=== PATIENT | male | born 1960 | race Caucasian/White ===

== ENCOUNTER 2016-07-26 15:08 | Inpatient (IN) | payer OTHER ==
[~2016-07-26] VITALS: Ht 180.3 cm; Wt 82.3 kg
--- NOTE | ~2016-07-26 | PR ---
[place], [place] PROGRESS NOTE NAME: BRIGIDA OLIVEIRA UNIT #: [id number] ROOM: [facility]- DOCTOR: LYNN FARRELL MD BIRTHDATE: [birth year] DOS: 07/31/2016 SUBJECTIVE: The patient was seen at his bedside today 07/31/2016 for followup of his atrial tachyarrhythmias. He is a 56-year-old man with a history of alcohol abuse and obstructive lung disease. He was admitted to the hospital on this occasion for alcohol withdrawal. While ambulating in the hospital, he had a sudden onset of a tachycardia with heart rates between 180 and 200. Monitor showed atrial fibrillation and flutter with a rapid ventricular response. We attempted to control him with diltiazem and digoxin without much benefit. Yesterday afternoon, he was placed on an amiodarone bolus and drip and he converted to sinus rhythm several hours later. Currently, he is in sinus rhythm with a heart rate of between 50 and 60. He tells me he feels no different bleed from yesterday and did not particularly notice when his heart slowed down. PHYSICAL EXAMINATION: VITAL SIGNS: Today, his pulse is 56 and regular, blood pressure 132/75. NECK: Supple. He has no jugular distention. Carotids are full. LUNGS: Respirations are unlabored. He has decreased breath sounds at the bases, but his lungs are otherwise clear. HEART: Has a regular rhythm with an S4 gallop. ABDOMEN: Soft and normally active without masses, organomegaly or bruits. EXTREMITIES: Showed no edema. His baseball coach currently shows sinus rhythm with PACs. IMPRESSION: 1. Paroxysmal atrial flutter with 2:1 block. The patient converted to sinus rhythm after being bolused with amiodarone. 2. CHADS-VASc score of 1. 3. Anticoagulation withheld because of ongoing alcohol abuse, risk of falling, risk of bleeding, and presence of auto anticoagulation. 4. intermediate frame tender and ongoing alcohol abuse. 5. History of obstructive lung disease with ongoing cigarette abuse. 6. History of alcoholic hepatitis. 7. History of necrotizing fasciitis (Victoriano's gangrene). 8. History of colostomy with subsequent reversal. PLAN: We will finish the current bag of amiodarone and then discontinue the drug. I would rather not keep him on amiodarone long-term. He will continue metoprolol p.o. along with his other medications. We will continue to follow him with his other physicians and we thank the hospitalist group for asking our advice regarding his care. [place], [place] PROGRESS NOTE NAME: BRIGIDA OLIVEIRA UNIT #: [id number] ROOM: [facility] DOCTOR: LYNN FARRELL MD BIRTHDATE: [birth year] LYNN FARRELL MD CM:PNTRANS 31 [phone] LYNN FARRELL MD 07/31/161956 interface
--- NOTE | ~2016-07-26 | CON ---
[place], [place] REPORT OF CONSULTATION NAME: [facility]IGIDA [facility]A [facility] [id number] UNIT #: [id number] ROOM: 412 DOCTOR: ZIGGY BENSON DPM BIRTHDATE: [birth year] DOS: 07/27/2016 SUBJECTIVE: The patient is a 56-year-old male with a chief complaint of elongated, thickened nails of both feet. PAST MEDICAL HISTORY: Alcohol abuse, COPD, hypertension, tobacco abuse. PAST SURGICAL HISTORY: Cataract surgery; colonoscopy; ____ reversal; necrotizing fasciitis; skin debridement, right groin area. SOCIAL HISTORY: Alcohol use, current smoker, 1 pack daily since 15, marijuana use. FAMILY HISTORY: Father ____ and mother history of COPD. PHYSICAL EXAMINATION: LOWER EXTREMITY EXAMINATION: Diminished pedal pulses bilateral, decreased hair growth, nail thickening, pigmentary discoloration, mild edema, temperature changes bilateral, thickened, yellow, dystrophic, incurvated, crumbly nails 1 through 5 bilateral with mycotic odor. ASSESSMENT: Onychomycosis, PVD, onychocryptosis bilateral. PLAN: Evaluation and management. Debrided nails 1 through 5 bilateral, debrided incurvated nail border. Thank you for kind consultation. ZIGGY BENSON DPM CM:CONSTR:REPORT OF CONSULTATION 1137 07/27/16 1816 interface
--- NOTE | ~2016-07-26 | PR ---
[place], [place] PROGRESS NOTE NAME: [id number] UNIT #: [id number] ROOM: [facility]- DOCTOR: LYNN FARRELL MD BIRTHDATE: [birth year] DOS: SUBJECTIVE: The patient was seen at his bedside in the intensive care unit today for followup of his atrial tachyarrhythmias. He is a 56-year-old man who has a history of long-term and ongoing alcohol abuse along with obstructive lung disease. He was admitted to the hospital for alcohol withdrawal. While ambulating in the hospital, he had the sudden onset of tachycardia with heart rates between 180 and 200. His electrocardiogram demonstrated atrial fibrillation and atrial flutter with a rapid ventricular response. Initially, we attempted to control with diltiazem and digoxin, but he remained in a rapid rhythm. On the afternoon of 07/30/2016, he was given amiodarone intravenously and did convert to sinus rhythm with a rate between 50 and 60. He feels no significant difference from when his heart was fast and in general his biggest concern is his cough and tremors. From the point of view of his cough that seems to be improving as well. It is productive, but he is breathing more easily and coughing less. PHYSICAL EXAMINATION: VITAL SIGNS: Today, his pulse is 68 and regular, blood pressure is 146/82. He is afebrile. NECK: Supple. He has no jugular distention or hepatojugular reflux. Carotids are full. LUNGS: Respirations are unlabored at rest. He does have a rare scattered wheeze. He has a few crackles at the bases. He does have expiratory prolongation, but in general his lung sounds are better than they were in the last few days. He has no presacral edema or chest wall tenderness. HEART: Has a regular rhythm with an S4 gallop. There are no significant murmurs. ABDOMEN: Soft and normally active without masses, organomegaly or bruits. EXTREMITIES: Showed no edema. DIAGNOSTIC DATA: ekg monitor tech showed sinus rhythm with PACs. Echocardiogram done yesterday showed normal left ventricular size with mild concentric left ventricular hypertrophy, normal systolic function with stage II diastolic dysfunction, mild left atrial enlargement, mild aortic insufficiency, trace tricuspid insufficiency with mildly elevated right ventricular systolic pressures. There was a small pericardial effusion which appeared to have no hemodynamic significance. IMPRESSION: 1. Paroxysmal atrial fibrillation and flutter. The patient converted to sinus rhythm after a bolus of amiodarone. 2. CHADS-VASc score equals 1. 3. Anticoagulation withheld because of ongoing alcohol abuse, risk of falling and risk of bleeding. In addition, the patient is auto-anticoagulated from the effects of alcohol on his liver. 4. alf and ongoing alcohol abuse. [place], [place] PROGRESS NOTE NAME: BRIGIDA OLIVEIRA UNIT #: [id number] ROOM: [facility] DOCTOR: LYNN FARRELL MD BIRTHDATE: [birth year] 5. History of obstructive lung disease with ongoing cigarette abuse. 6. History of alcoholic hepatitis. 7. History of necrotizing fasciitis (Victoriano's gangrene). 8. History of colostomy and subsequent reversal. PLAN: He does seem to be stabilizing from a heart standpoint. He is on a small dose of metoprolol and aspirin. As noted above, we are withholding anticoagulants. We will continue to follow him intermittently and we thank the hospitalist group for asking our advice regarding his care. LYNN FARRELL MD CM:PNTRANS [id number] LYNN FARRELL MD 08/01/16 1341 interface
--- NOTE | ~2016-07-26 | CON ---
[place], [place] REPORT OF CONSULTATION NAME: BRIGIDA OLIVEIRA UNIT #: [id number] ROOM: 412 DOCTOR: CATARINA FIORE MD BIRTHDATE: [birth year] DOS: 07/29/2016 HISTORY OF PRESENT ILLNESS: A 56-year-old patient who presented with chief complaint of abdominal pain, alcohol intoxication. He is telling me he is drinking about three 6 packs to a case again recently. He had a panel of blood work was done. His white blood cell was 9, H and H of 17 and 48. Serum ammonia level was 19. Comprehensive metabolic panel, BUN and creatinine 21 and 1.4. Electrolytes were balanced. GOT, GPT of 500 and 300+ with bilirubin of 5+, alkaline phosphatase of 250+, amylase, lipase surprisingly were normal. Chest x-ray, no acute process. He had further workups done including liver sonogram and pericholecystic fluid or gallbladder wall thickening. Hernandez's sign negative. He had a HIDA scan done, abnormal low ejection fraction of approximately 0% was noticed. This contributes to his abdominal pain as well. His latest comprehensive metabolic panel, bilirubin has anthony to 6.2, GOT and GPT of mid 200s, again alkaline phosphatase 185. PAST MEDICAL HISTORY: COPD, obesity, hypertension. SOCIAL HISTORY: Alcohol and nicotine dependency. PAST SURGICAL HISTORY: Colostomy and reversal cataracts. SOCIAL HISTORY: Smoker, an alcohol consumer, and marijuana user. FAMILY HISTORY: Noncontributory. ALLERGIES: PENICILLIN and AUGMENTIN. MEDICATIONS: List has been reviewed. REVIEW OF SYSTEMS: HEENT: Denies double vision, blurred vision. RESPIRATORY: Denies acute shortness of breath. CARDIOVASCULAR: Denies acute chest pain. DIGESTIVE SYSTEM: Nonspecific abdominal pain. PHYSICAL EXAMINATION: VITAL SIGNS: Stable. HEENT: Head normocephalic, nontraumatic. Mouth and buccal mucosa benign. NECK: Supple, no thyromegaly, no cervical lymphadenopathy. CHEST: Symmetric anatomy, equal expansion. Decreased air entry bilaterally. HEART: Normal sinus rhythm, no gallop, no murmur. ABDOMEN: Obese, large, soft. No hepato-organomegaly. Nonspecific tenderness. Bowel sounds present. EXTREMITIES: No cyanosis, no pedal edema. NEUROLOGIC: Alert, oriented to time, place, person. IMPRESSION: Abnormal liver function tests, alcohol intoxication, alcohol and nicotine dependency, alcoholic hepatitis, dysfunctional gallbladder with an ejection fraction of 0%. I believe that is not an issue at this moment in time [place], [place] REPORT OF CONSULTATION NAME: BRIGIDA OLIVEIRA UNIT #: [id number] ROOM: 412 DOCTOR: ADEBAYO MARKS,CATARINA BIRTHDATE: 60 and majority of his LFT abnormality is secondary to his alcoholic hepatitis. Other adjunctive diagnoses as outlined above. He is already on Levaquin. PLAN AND DISCUSSION: We are going to monitor his LFTs again tomorrow and next day and as he stabilizes, he requires an elective cholecystectomy. Bearing in mind that his platelet count of 40,000 is of concern, if he is considered for any invasive therapy, he should have transfusion of platelets before any invasion surgical plans are undertaken. His INR is 1.5, PT is 15.9, also signifying his hepatocellular disease. CATARINA FIORE MD CM:CONSTR:REPORT OF CONSULTATION 5445 07/29/16 1945 interface
--- NOTE | ~2016-07-26 | CON ---
[place], [place] REPORT OF CONSULTATION NAME: BRIGIDA OLIVEIRA UNIT #: [id number] ROOM: [facility] DOCTOR: LYNN FARRELL MD BIRTHDATE: [birth year] DOS: 07/30/2016 CARDIOLOGY CONSULTATION. REASON FOR CONSULTATION: Recurrent atrial flutter. HISTORY OF PRESENT ILLNESS: The patient is a 56-year-old man with a long history of alcohol abuse and obstructive lung disease. He initially presented to the hospital in April 2015 with Victoriano's gangrene. He was found to be in atrial fibrillation with a rapid ventricular response. This was at least partially driven by his sepsis and fasciitis. He did require cardioversion to control his heart rate and had an extensive debridement with prolonged wound care for the infection. He was hospitalized again in February 2016 with a regular supraventricular tachycardia and rapid ventricular response, which converted to sinus rhythm. He has not been anticoagulated because of his history of alcohol abuse and concerns regarding bleeding. In addition, he has a CHADS2-VASc score of 1, so aspirin only has been used as his anticoagulant. In fact, he does show signs of a coagulopathy related to underlying liver disease and this is the further reason why he should not receive systemic anticoagulation. The patient has also been hospitalized with acute hepatitis, which was felt to be related to alcohol abuse in June 2016. That hospitalization was complicated by elevated ammonia levels and encephalopathy. He did improve and was discharged to home. He came back to the hospital on this occasion with agitation, tremor and anxiety. The patient states that he is trying to withdrawal from alcohol and in the past, he has developed withdrawal symptoms with it hours of seizing to drink. Upon admission, he was in sinus tachycardia and very tremulous, but in the hospital while ambulating, he was suddenly noticed to have a much more rapid heartbeat. The heart rate went up to 180 and then up to 202. He was found to be in atrial fibrillation and flutter with a rapid ventricular response. Cardiology was asked to assist in his care at that time. He was placed on a diltiazem drip, which was titrated up to 15 mg per hour. He settled into atrial flutter with a heart rate of about 140-150. Currently, he feels reasonably well. He does have a tremor, but denies any chest pain or palpitations. He denies lightheadedness or syncope. He denies any chest pain. PAST MEDICAL HISTORY: Includes: 1. Long-term and ongoing cigarette abuse. 2. Obstructive lung disease. 3. Long-term and ongoing alcohol abuse. The patient states that he has been drinking heavily since 25 years of age, consuming mostly beer. 4. Hospitalization for necrotizing fasciitis of the groin, April 2015. 5. Atrial fibrillation with rapid ventricular response noted during hospitalization for necrotizing fasciitis. 6. Echocardiogram, 04/19/2015. Technically difficult study, normal left ventricular internal dimensions with mild concentric left ventricular hypertrophy, ejection fraction 65% with stage 1 diastolic dysfunction. Right ventricular systolic pressure 50-55 mmHg, small pericardial clear space without [place], [place] REPORT OF CONSULTATION NAME: BRIGIDA OLIVEIRA UNIT #: [id number] ROOM: [facility] DOCTOR: LYNN FARRELL MD BIRTHDATE: [birth year] evidence for tamponade, dilated IVC. 7. Hospitalization, June 2016, with acute alcoholic hepatitis. 8. Hospitalization, 07/26/2016, with acute alcohol withdrawal. 9. Elevated liver enzymes consistent with alcoholic hepatitis. 10. Recurrent atrial flutter with rapid ventricular response. REVIEW OF SYSTEMS: HEENT: Negative for acute visual or auditory problems. CONSTITUTIONAL: The patient has fatigue, dyspnea and weakness. He does have tremors. RESPIRATORY: The patient does have dyspnea with minor exertion. CARDIOVASCULAR: The patient denies chest pain. GASTROINTESTINAL: The patient does have abdominal pain and nausea, but no vomiting. GENITOURINARY: The patient does have loss of urine. DERMATOLOGIC: No acute skin rashes. NEUROLOGIC: The patient does have tremor. ENDOCRINE: The patient denies polydipsia, polyuria or heat or cold intolerance. MUSCULOSKELETAL: Negative for connective tissue disease. PSYCHIATRIC: The patient is anxious, but denies major depression. The remainder of the review of systems is negative except as noted above. FAMILY HISTORY: The patient's father is estranged. His mother does have obstructive lung disease. MEDICATIONS PRIOR TO ADMISSION: Albuterol by inhaler 1 puff q.4 hours and by nebulizer p.r.n., Symbicort 1 puff daily, Spiriva 2 puffs daily, oxygen as needed 3 liters by nasal cannula, lorazepam 1 mg t.i.d. and metoprolol 25 mg once or twice a day. ALLERGIES: The patient lists allergies to AUGMENTIN including AMOXICILLIN and CLAVULANIC ACID. SOCIAL HISTORY: The patient drank beer heavily almost up to the time of admission. He does smoke about a half pack of cigarettes a day. He uses marijuana on occasion. PHYSICAL EXAMINATION: GENERAL: The patient is an elderly white male who looks much older than his stated age. VITAL SIGNS: Pulse is 140 and regular, blood pressure is 106/79. He is afebrile. HEENT: Normocephalic, atraumatic. Extraocular muscles are intact. He does have some scleral injection. Oral mucosa is moist. Tongue is midline. Neck is supple. He has no jugular distention. He does have hepatojugular reflux. Carotids are full. I heard no bruits. Respirations were unlabored at rest. He has decreased breath sounds at the bases. He has no presacral edema. HEART: His heart has a regular rhythm. He has no murmurs, rubs or gallops. He has a very rapid rhythm. ABDOMEN: Soft and normoactive. No masses or organomegaly or bruits are heard. [place], [place] REPORT OF CONSULTATION NAME: BRIGIDA OLIVEIRA UNIT #: [id number] ROOM: [facility] DOCTOR: LYNN FARRELL MD BIRTHDATE: [birth year] EXTREMITIES: Showed no edema. Peripheral pulses are palpable in the feet. LABORATORY DATA: Electrocardiogram shows atrial flutter with 2:1 block. Hemoglobin is 14.8, white count 8800, platelet count is 42,000. INR has been as high as 1.6 on admission, is currently 1.3. He is not on any anticoagulants. Sodium is 144, potassium 3.8, chloride 102, CO2 of 31, BUN 17, creatinine 0.97. Transaminases are elevated. IMPRESSION: 1. Atrial flutter with 2:1 block. The patient has had atrial tachyarrhythmias in the past and has required cardioversion for management. 2. CHADS-VASc score of 1. 3. The patient has not been anticoagulated because of ongoing alcohol abuse, risk of falling, risk of bleeding and presence of auto-anticoagulation. The patient does take an aspirin every day prior to his admission. 4. History of long-term and ongoing alcohol abuse. 5. History of obstructive lung disease with cigarette abuse. 6. History of alcoholic hepatitis. 7. History of necrotizing fasciitis. 8. History of colostomy with subsequent reversal. PLAN: The patient's heart rate remains rapid despite digoxin and diltiazem intravenously. I would rather not cardiovert him electrically because of fear of dislodging a clot and I am not very happy with the idea of doing a transesophageal echocardiogram in him given his apparent acute hepatitis. We will stop his diltiazem and digoxin and place him on amiodarone for rate control and hopefully for cardioversion. An echocardiogram will be obtained. We will continue to follow him with his other physicians. We thank the hospitalist group for asking our advice regarding his care. LYNN FARRELL MD CM:CONSTR:REPORT OF CONSULTATION 1735 07/30/16 5871 interface
[~2016-07-26 15:08] MED LIST: ALBUTEROL0.09 MG/A2 INH; ALBUTEROL0.09 MG/A3 INH; ASMANEX220 MCG INH; ATARAX,VISTARIL50 MG PO; ATIVAN1 MG PO; AUGMENTIN 875 M1 TA1 PO; DOXYCYCLINE HY100 M5 PO; DUONEB 3 MG/3 ML3 M1 NEB; DUONEB 3ML 3 MG/3 ML INH; FOLIC ACID1 MG PO; LASIX40 MG PO; Lopressor25 MG PO; NEBULIZER; NICOTINE T21 MG/24 H T; NILSTAT,MY500000 UN/ PO; ONDANSETRON HYDR4 M1 PO; OXYGEN NAS; PREDNISONE20 MG PO; VITAMIN B-11 TAB PO; ZESTRIL2.5 MG PO
[2016-07-26 15:43] VITALS: BP 124/77
[2016-07-26 16:43] LABS: BASO % 0.4 % (0.0-1.0); EOS % 0.1 % (1.0-4.0); HEMATOCRIT 48.4 % (42.0-52.0); HEMOGLOBIN 17.5 g/dl (14.0-18.0); LYMPH % 11.2 % (27.0-41.0); MEAN CELL VOLUME 97.2 fl (80.0-94.0); MEAN CORPUSCULAR HGB 35.1 pg (27.0-31.0); MEAN CORPUSCULAR HGB CONC 36.2 g/dl (33.0-37.0); MEAN PLATELET VOLUME 11.3 fl (9.6-12.3); MONO # 0.8 10*3/uL (0.1-1.0); MONO % 9.3 % (3.0-9.0); NEUT # 7.1 10*3/uL (2.3-7.9); NEUT % 78.8 % (47.0-73.0); PLATELET COUNT AUTOMATED 99 10*3/uL (130-400); RED BLOOD COUNT 4.98 10*6/uL (4.50-5.90); RED CELL DISTRI WIDTH 14.1 % (0-14.5)
[2016-07-26 16:59] LABS: ALBUMIN 3.1 gm/dl (3.1-4.5); ALKALINE PHOSPHATASE 251 U/L (45-117); BILIRUBIN, TOTAL 5.1 mg/dl (0.2-1.0); BUN 21 mg/dl (7-24); CARBON DIOXIDE 25 mmol/L (21-32); CHLORIDE 91 mmol/L (98-107); CPK 357 U/L (39-308); EST GLOM FILT AFRICAN AMERICAN > 60 ml/min; GLUCOSE 118 mg/dL (65-99); LDH 388 U/L (87-241); MAGNESIUM 1.9 mg/dL (1.5-2.1); POTASSIUM 3.6 mmol/L (3.5-5.1); SGOT/AST 581 IU/L (3-35); SGPT/ALT 387 U/L (12-78); SODIUM 132 mmol/L (136-145); TOTAL PROTEIN 6.4 gm/dL (6.4-8.2); TROPONIN I 0.021 ng/ml (<0.045)
[2016-07-26 17:04] LABS: CKMB 10.2 ng/ml (0.5-3.6)
[2016-07-26 20:00] VITALS: BP 97/65
[2016-07-26 20:03] LABS: INTERNATIONAL NORM RATIO 1.9 (2.0-3.5); PROTHROMBIN TIME 21.3 SECONDS (9.0-12.4)
[2016-07-26 20:15] VITALS: BP 97/65
[2016-07-26] MEDS ORDERED: SYMBICORT1 AE1 INH ×2 (20:54→21:00)
[2016-07-26] MEDS ORDERED: SPIRIVA -- 3018 MCG INH (20:55)
[2016-07-26] MEDS ORDERED: SPIRIVA RESPIMAT4 GM INH (21:01)
[2016-07-26 22:00] VITALS: BP 98/67
[2016-07-27] VITALS: BP 157/86
[2016-07-27 04:00] VITALS: BP 100/58
[2016-07-27 06:12] LABS: BASO % 0.4 % (0.0-1.0); EOS # 0.1 10*3/uL (0.0-0.4); EOS % 1.1 % (1.0-4.0); HEMATOCRIT 43.5 % (42.0-52.0); HEMOGLOBIN 15.8 g/dl (14.0-18.0); LYMPH # 1.5 10*3/uL (1.3-4.4); LYMPH % 18.3 % (27.0-41.0); MEAN CORPUSCULAR HGB 35.6 pg (27.0-31.0); MEAN CORPUSCULAR HGB CONC 36.3 g/dl (33.0-37.0); MEAN PLATELET VOLUME 12.7 fl (9.6-12.3); MONO # 0.7 10*3/uL (0.1-1.0); MONO % 8.2 % (3.0-9.0); NEUT # 5.9 10*3/uL (2.3-7.9); NEUT % 71.6 % (47.0-73.0); RED BLOOD COUNT 4.44 10*6/uL (4.50-5.90); RED CELL DISTRI WIDTH 14.1 % (0-14.5); WHITE BLOOD COUNT 8.2 10*3/uL (4.8-10.8)
[2016-07-27 06:14] LABS: PLATELET COUNT AUTOMATED 67 10*3/uL (130-400)
[2016-07-27 06:30] LABS: ALBUMIN 2.7 gm/dl (3.1-4.5); BUN 16 mg/dl (7-24); CARBON DIOXIDE 24 mmol/L (21-32); CHLORIDE 99 mmol/L (98-107); GLUCOSE 84 mg/dL (65-99); MAGNESIUM 1.5 mg/dL (1.5-2.1); POTASSIUM 3.6 mmol/L (3.5-5.1); SODIUM 138 mmol/L (136-145)
[2016-07-27 06:37] LABS: ALKALINE PHOSPHATASE 215 U/L (45-117); CHOLESTEROL 230 mg/dL (<200); EST GLOM FILT AFRICAN AMERICAN > 60 ml/min; HDL CHOLESTEROL 12 mg/dl (40-60); INTERNATIONAL NORM RATIO 1.6 (2.0-3.5); PHOSPHOROUS 2.3 mg/dL (2.5-4.9); PROTHROMBIN TIME 17.8 SECONDS (9.0-12.4); SGOT/AST 479 IU/L (3-35); SGPT/ALT 319 U/L (12-78); TOTAL PROTEIN 5.9 gm/dL (6.4-8.2); TRIGLYCERIDES 755 mg/dl (<150)
[2016-07-27 07:10] LABS: HEPATITIS C VIRUS ANTIBODY <0.1 s/co (0.0-0.9)
[2016-07-27 07:33] LABS: FOLIC ACID > 24.00 ng/mL (>5.38)
[2016-07-27 08:00] VITALS: BP 117/76
[2016-07-27 12:00] VITALS: BP 118/70
[2016-07-27 12:08] LABS: BILIRUBIN 1+ (NEGATIVE); BLOOD NEGATIVE (NEGATIVE); CLARITY CLEAR (CLEAR); COLOR YELLOW (YELLOW); GLUCOSE NEGATIVE (NEGATIVE); KETONE NEGATIVE (NEGATIVE); LEUKO ESTERASE NEGATIVE (NEGATIVE); NITRITE NEGATIVE (NEGATIVE); PROTEIN NEGATIVE (NEGATIVE); SPECIFIC GRAVITY <= 1.005 (1.005-1.030); UROBILINOGEN 0.2 E.U./dl (0.2-1.0)
[2016-07-27 12:33] LABS: BACTERIA TRACE; URINE REFLEX COMMENT NO (NO); WBC 0-2 wbc/hpf (0-5)
[2016-07-27 16:00] VITALS: BP 123/71
[2016-07-27 20:00] VITALS: BP 125/75
[2016-07-28] VITALS: BP 136/73
[2016-07-28 06:14] LABS: HEMATOCRIT 41.7 % (42.0-52.0); HEMOGLOBIN 14.3 g/dl (14.0-18.0); MEAN CORPUSCULAR HGB 35.1 pg (27.0-31.0); MEAN CORPUSCULAR HGB CONC 34.3 g/dl (33.0-37.0); MEAN PLATELET VOLUME 12.9 fl (9.6-12.3); PLATELET COUNT AUTOMATED 48 10*3/uL (130-400); RED BLOOD COUNT 4.07 10*6/uL (4.50-5.90); RED CELL DISTRI WIDTH 14.3 % (0-14.5)
[2016-07-28 06:15] LABS: MEAN CELL VOLUME 102.5 fl (80.0-94.0)
[2016-07-28 06:29] LABS: ALBUMIN 2.5 gm/dl (3.1-4.5); ALKALINE PHOSPHATASE 207 U/L (45-117); BILIRUBIN, TOTAL 5.9 mg/dl (0.2-1.0); BUN 9 mg/dl (7-24); CARBON DIOXIDE 27 mmol/L (21-32); CHLORIDE 103 mmol/L (98-107); EST GLOM FILT AFRICAN AMERICAN > 60 ml/min; GLUCOSE 204 mg/dL (65-99); PHOSPHOROUS 1.7 mg/dL (2.5-4.9); POTASSIUM 3.7 mmol/L (3.5-5.1); SGOT/AST 292 IU/L (3-35); SGPT/ALT 252 U/L (12-78); SODIUM 140 mmol/L (136-145); TOTAL PROTEIN 5.7 gm/dL (6.4-8.2)
[2016-07-28 06:36] LABS: CKMB 3.4 ng/ml (0.5-3.6); CPK 127 U/L (39-308)
[2016-07-28 06:40] LABS: LYMPHOCYTE # 0.5 10*3/uL (1.3-4.4); MONOCYTE # 0.2 10*3/uL (0.1-1.0); NEUTROPHIL # 7.4 10*3/uL (2.3-7.9); NEUTROPHILS 92 % (47-73); PLATELET SUFFICIENCY LOW (NORMAL); TARGET CELLS FEW; TOTAL CELLS COUNTED 100 #CELLS
[2016-07-28 06:44] LABS: INTERNATIONAL NORM RATIO 1.5 (2.0-3.5); PROTHROMBIN TIME 15.9 SECONDS (9.0-12.4)
[2016-07-28 08:00] VITALS: BP 124/77
[2016-07-28 12:00] VITALS: BP 131/75
[2016-07-28 16:00] VITALS: BP 134/85
[2016-07-28 20:00] VITALS: BP 120/74
[2016-07-29] VITALS: BP 140/87
[2016-07-29 06:19] LABS: HEMATOCRIT 42.4 % (42.0-52.0); HEMOGLOBIN 14.4 g/dl (14.0-18.0); MEAN CELL VOLUME 101.9 fl (80.0-94.0); MEAN CORPUSCULAR HGB 34.6 pg (27.0-31.0); MEAN PLATELET VOLUME 12.7 fl (9.6-12.3); RED BLOOD COUNT 4.16 10*6/uL (4.50-5.90); RED CELL DISTRI WIDTH 14.5 % (0-14.5); WHITE BLOOD COUNT 11.4 10*3/uL (4.8-10.8)
[2016-07-29 06:28] LABS: HEMOGLOBIN A1c 4.8 % (4.8-5.6)
[2016-07-29 06:32] LABS: PLATELET COUNT AUTOMATED 41 10*3/uL (130-400)
[2016-07-29 06:42] LABS: INTERNATIONAL NORM RATIO 1.5 (2.0-3.5); PROTHROMBIN TIME 16.1 SECONDS (9.0-12.4)
[2016-07-29 06:43] LABS: ALBUMIN 2.6 gm/dl (3.1-4.5); ALKALINE PHOSPHATASE 185 U/L (45-117); BILIRUBIN, DIRECT 4.6 mg/dL (0.0-0.2); BILIRUBIN, TOTAL 6.2 mg/dl (0.2-1.0); BUN 13 mg/dl (7-24); CARBON DIOXIDE 30 mmol/L (21-32); CHLORIDE 104 mmol/L (98-107); EST GLOM FILT AFRICAN AMERICAN > 60 ml/min; GLUCOSE 124 mg/dL (65-99); MAGNESIUM 1.6 mg/dL (1.5-2.1); PHOSPHOROUS 2.4 mg/dL (2.5-4.9); POTASSIUM 3.7 mmol/L (3.5-5.1); SGOT/AST 215 IU/L (3-35); SODIUM 144 mmol/L (136-145)
[2016-07-29 06:46] LABS: SGPT/ALT 223 U/L (12-78)
[2016-07-29 07:12] LABS: LYMPHOCYTE # 0.3 10*3/uL (1.3-4.4); MONOCYTE # 0.2 10*3/uL (0.1-1.0); NEUTROPHIL # 10.8 10*3/uL (2.3-7.9); NEUTROPHILS 95 % (47-73); TOTAL CELLS COUNTED 100 #CELLS
[2016-07-29 07:13] LABS: PLATELET SUFFICIENCY LOW (NORMAL); POLYCHROMASIA SLIGHT; TARGET CELLS MODERATE
[2016-07-29 08:00] VITALS: BP 134/72
[2016-07-29 12:00] VITALS: BP 126/82
[2016-07-29 16:00] VITALS: BP 130/76
[2016-07-29 20:00] VITALS: BP 130/78
[2016-07-30] VITALS (12 sets, daily range): BP systolic 91–1112; BP diastolic 63–91
[2016-07-30 05:42] LABS: HEMATOCRIT 42.5 % (42.0-52.0); HEMOGLOBIN 14.8 g/dl (14.0-18.0); MEAN CELL VOLUME 99.8 fl (80.0-94.0); MEAN CORPUSCULAR HGB 34.7 pg (27.0-31.0); MEAN CORPUSCULAR HGB CONC 34.8 g/dl (33.0-37.0); MEAN PLATELET VOLUME 13.1 fl (9.6-12.3); PLATELET COUNT AUTOMATED 42 10*3/uL (130-400); RED BLOOD COUNT 4.26 10*6/uL (4.50-5.90); RED CELL DISTRI WIDTH 14.7 % (0-14.5); WHITE BLOOD COUNT 8.8 10*3/uL (4.8-10.8)
[2016-07-30 06:01] LABS: ALBUMIN 2.8 gm/dl (3.1-4.5); ALKALINE PHOSPHATASE 213 U/L (45-117); BILIRUBIN, TOTAL 5.8 mg/dl (0.2-1.0); BUN 17 mg/dl (7-24); CARBON DIOXIDE 31 mmol/L (21-32); CHLORIDE 102 mmol/L (98-107); EST GLOM FILT AFRICAN AMERICAN > 60 ml/min; GLUCOSE 131 mg/dL (65-99); MAGNESIUM 1.7 mg/dL (1.5-2.1); PHOSPHOROUS 3.5 mg/dL (2.5-4.9); POTASSIUM 3.8 mmol/L (3.5-5.1); SGOT/AST 245 IU/L (3-35); SGPT/ALT 244 U/L (12-78); SODIUM 144 mmol/L (136-145); TOTAL PROTEIN 5.9 gm/dL (6.4-8.2)
[2016-07-30 06:05] LABS: INTERNATIONAL NORM RATIO 1.3 (2.0-3.5); PROTHROMBIN TIME 14.2 SECONDS (9.0-12.4)
[2016-07-30 06:29] LABS: LYMPHOCYTE # 0.8 10*3/uL (1.3-4.4); MONOCYTE # 0.2 10*3/uL (0.1-1.0); NEUTROPHIL # 7.8 10*3/uL (2.3-7.9); NEUTROPHILS 89 % (47-73); TOTAL CELLS COUNTED 100 #CELLS
[2016-07-30 06:30] LABS: PLATELET SUFFICIENCY LOW (NORMAL); POLYCHROMASIA SLIGHT; TARGET CELLS MANY
[2016-07-31] VITALS (12 sets, daily range): BP systolic 103–144; BP diastolic 48–87
[2016-07-31 05:55] LABS: ALBUMIN 2.4 gm/dl (3.1-4.5); ALKALINE PHOSPHATASE 183 U/L (45-117); BILIRUBIN, TOTAL 4.3 mg/dl (0.2-1.0); BUN 20 mg/dl (7-24); CARBON DIOXIDE 34 mmol/L (21-32); CHLORIDE 103 mmol/L (98-107); EST GLOM FILT AFRICAN AMERICAN > 60 ml/min; GLUCOSE 141 mg/dL (65-99); POTASSIUM 4.4 mmol/L (3.5-5.1); SGOT/AST 177 IU/L (3-35); SGPT/ALT 232 U/L (12-78); SODIUM 146 mmol/L (136-145); TOTAL PROTEIN 5.3 gm/dL (6.4-8.2)
[2016-07-31 06:15] LABS: HEMATOCRIT 38.8 % (42.0-52.0); HEMOGLOBIN 13.1 g/dl (14.0-18.0); MEAN CORPUSCULAR HGB 34.1 pg (27.0-31.0); MEAN CORPUSCULAR HGB CONC 33.8 g/dl (33.0-37.0); MEAN PLATELET VOLUME 12.6 fl (9.6-12.3); PLATELET COUNT AUTOMATED 37 10*3/uL (130-400); RED BLOOD COUNT 3.84 10*6/uL (4.50-5.90); RED CELL DISTRI WIDTH 14.9 % (0-14.5); WHITE BLOOD COUNT 7.8 10*3/uL (4.8-10.8)
[2016-07-31 07:07] LABS: MONOCYTE # 0.2 10*3/uL (0.1-1.0); NEUTROPHIL # 7.6 10*3/uL (2.3-7.9); NEUTROPHILS 97 % (47-73); PLATELET SUFFICIENCY LOW (NORMAL); POLYCHROMASIA SLIGHT; TARGET CELLS MANY; TOTAL CELLS COUNTED 100 #CELLS
[2016-08-01] VITALS: BP 157/86
[2016-08-01 04:00] VITALS: BP 146/82
[2016-08-01 05:54] LABS: BASO % 0.1 % (0.0-1.0); HEMATOCRIT 40.1 % (42.0-52.0); HEMOGLOBIN 13.6 g/dl (14.0-18.0); IG # 0.1 10*3/uL (0.0-0.1); LYMPH # 0.5 10*3/uL (1.3-4.4); LYMPH % 5.2 % (27.0-41.0); MEAN CELL VOLUME 99.5 fl (80.0-94.0); MEAN CORPUSCULAR HGB 33.7 pg (27.0-31.0); MEAN CORPUSCULAR HGB CONC 33.9 g/dl (33.0-37.0); MEAN PLATELET VOLUME 12.4 fl (9.6-12.3); MONO # 0.5 10*3/uL (0.1-1.0); MONO % 5.4 % (3.0-9.0); NEUT # 8.8 10*3/uL (2.3-7.9); NEUT % 88.7 % (47.0-73.0); RED BLOOD COUNT 4.03 10*6/uL (4.50-5.90); RED CELL DISTRI WIDTH 15.2 % (0-14.5); WHITE BLOOD COUNT 9.9 10*3/uL (4.8-10.8)
[2016-08-01 05:55] LABS: PLATELET COUNT AUTOMATED 52 10*3/uL (130-400)
[2016-08-01 05:57] LABS: BUN 19 mg/dl (7-24); CARBON DIOXIDE 34 mmol/L (21-32); CHLORIDE 103 mmol/L (98-107); EST GLOM FILT AFRICAN AMERICAN > 60 ml/min; GLUCOSE 122 mg/dL (65-99); POTASSIUM 4.1 mmol/L (3.5-5.1); SODIUM 146 mmol/L (136-145)
[2016-08-01 08:00] VITALS: BP 100/70
[2016-08-01 12:00] VITALS: BP 129/88
[2016-08-01] MEDS ORDERED: ATIVAN1 MG PO (14:33)
[2016-08-01] MEDS ORDERED: CHANTIX START M1 TAB PO (14:33)
[2016-08-01] MEDS ORDERED: PREDNISONE10 MG PO (14:33)
[2016-08-01] MEDS ORDERED: LEVAQUIN500 M2 PO (14:33)
== END 2016-08-01 16:08 | disposition home or self-care (01) | DRG 896 ==
LOC: ED 15:08 → ICCU 16:44 → 4E 16:44 → EDHOLD 16:44 → 5E 16:50 → ICCU 21:14 → 4E 07-27 13:40 → ICCU 07-30 09:53
PROVIDERS: Emergency Medicine; Internal Medicine; Internal Medicine Hospice and Palliative Medicine; Physician Assistant; Student in an Organized Health Care Education/Training Program
DX: F10.221 Alcohol dependence with intoxication delirium (principal); N17.0 Acute kidney failure with tubular necrosis; J18.9 Pneumonia, unspecified organism; E87.3 Alkalosis; E87.0 Hyperosmolality and hypernatremia; D68.69 Other thrombophilia; J44.0 Chronic obstructive pulmonary disease with (acute) lower respiratory infection; I48.92 Unspecified atrial flutter; E44.0 Moderate protein-calorie malnutrition; M62.82 Rhabdomyolysis; E87.1 Hypo-osmolality and hyponatremia; D69.6 Thrombocytopenia, unspecified; F17.210 Nicotine dependence, cigarettes, uncomplicated; I10 Essential (primary) hypertension; K70.10 Alcoholic hepatitis without ascites; E80.6 Other disorders of bilirubin metabolism; B35.1 Tinea unguium; I48.0 Paroxysmal atrial fibrillation; K82.8 Other specified diseases of gallbladder; Z99.81 Dependence on supplemental oxygen; E66.9 Obesity, unspecified; I73.9 Peripheral vascular disease, unspecified; Z68.25 Body mass index [BMI] 25.0-25.9, adult; Z88.1 Allergy status to other antibiotic agents; Z71.6 Tobacco abuse counseling; Z88.8 Allergy status to other drugs, medicaments and biological substances; Z82.5 Family history of asthma and other chronic lower respiratory diseases

== ENCOUNTER 2016-11-04 15:42 | Inpatient (IN) | payer OTHER ==
[~2016-11-04] VITALS: Ht 180.3 cm; Wt 86.0 kg
--- NOTE | ~2016-11-04 | CON ---
[place], [place] REPORT OF CONSULTATION NAME: [id number] UNIT #: [id number] ROOM: 502 DOCTOR: CATARINA FIORE MD BIRTHDATE: [birth year] DOS: 11/04/2016 HISTORY OF PRESENT ILLNESS: A 56-year-old patient who presented to Emergency Room with black tarry stool. The patient with history of alcohol consumption, last drink being today. Alcohol level of greater than 40. White blood cell was 12, H and H of 9 and 26, platelet count 93. INR was 1.4, PT 14.9 and serum ammonia level is 26. Chest x-ray, normal chest evaluation. Comprehensive metabolic panel, electrolyte balance, liver function test all abnormal. SGOT, SGPT of 500+ and 170+, alkaline phosphatase 600+, bilirubin 11.9. His alcohol level 49. PAST MEDICAL HISTORY: Aggressive alcohol consumer, COPD, respiratory insufficiency, atrial fibrillation, hepatic steatosis, most likely cirrhosis involved, nicotine dependency. PAST SURGICAL HISTORY: Colostomy, colostomy reversal, necrotizing fasciitis, cataracts. SOCIAL HISTORY: Smoker and alcohol consumer, used marijuana as well. FAMILY HISTORY: Noncontributory. ALLERGIES: CLAVULANIC ACID and AMOXICILLIN. REVIEW OF SYSTEMS: HEENT: Denies double vision, blurred vision. RESPIRATORY: Denies shortness of breath. CARDIOVASCULAR: Denies chest pain. DIGESTIVE SYSTEM: GI bleed. PHYSICAL EXAMINATION: VITAL SIGNS: Stable. Borderline obese. HEENT: Head normocephalic, nontraumatic. Mouth and buccal mucosa benign. NECK: Supple, no thyromegaly. CHEST: Symmetric anatomy, equal expansion. No wheeze, no rhonchi. HEART: Normal sinus rhythm, no gallop, no murmur. ABDOMEN: Obese, soft. No hepato-organomegaly. EXTREMITIES: Stasis dermatitis. NEUROLOGIC: Alert, oriented to time, place and person. IMPRESSION: Gastrointestinal bleed, ruling out esophageal varicosity, ruling out cirrhotic liver, thrombocytopenia as the sequelae of the above, atrial fibrillation history, COPD history, nicotine and alcohol dependency, extreme hyperbilirubinemia. PLAN AND DISCUSSION: Due to the fact that he has had melanotic stool, we are going to consider him as an emergency to be reassessed. I am going to do urgent EGD to assure there is no active bleeding from upper GI tract with the concerns above. [place], [place] REPORT OF CONSULTATION NAME: BRIGIDA OLIVEIRA UNIT #: [id number] ROOM: [facility] DOCTOR: ADEBAYO MARKS,CATARINA BIRTHDATE: [birth year] CATARINA FIORE MD CM:CONSTR:REPORT OF CONSULTATION 14 11/04/162104 interface
[~2016-11-04 15:42] MED LIST changes: +CHANTIX START M1 TAB PO; +LEVAQUIN500 M2 PO; +PREDNISONE10 MG PO; +SPIRIVA -- 3018 MCG INH; +SPIRIVA RESPIMAT4 GM INH; +SYMBICORT1 AE1 INH
[2016-11-04 15:58] VITALS: BP 107/65
[2016-11-04 16:53] LABS: BASO % 0.3 % (0.0-1.0); EOS % 0.2 % (1.0-4.0); HEMATOCRIT 26.7 % (42.0-52.0); HEMOGLOBIN 9.1 g/dl (14.0-18.0); LYMPH # 1.4 10*3/uL (1.3-4.4); LYMPH % 11.8 % (27.0-41.0); MEAN CELL VOLUME 93.7 fl (80.0-94.0); MEAN CORPUSCULAR HGB 31.9 pg (27.0-31.0); MEAN CORPUSCULAR HGB CONC 34.1 g/dl (33.0-37.0); MEAN PLATELET VOLUME 10.7 fl (9.6-12.3); MONO # 1.4 10*3/uL (0.1-1.0); MONO % 11.5 % (3.0-9.0); NEUT # 9.1 10*3/uL (2.3-7.9); NEUT % 74.4 % (47.0-73.0); PLATELET COUNT AUTOMATED 93 10*3/uL (130-400); RED BLOOD COUNT 2.85 10*6/uL (4.50-5.90); RED CELL DISTRI WIDTH 17.2 % (0-14.5); WHITE BLOOD COUNT 12.2 10*3/uL (4.8-10.8)
[2016-11-04 17:01] LABS: ACT PARTIAL THROMBO TIME 30.7 SECONDS (20.8-31.5); INTERNATIONAL NORM RATIO 1.4 (2.0-3.5)
[2016-11-04 17:10] LABS: ALBUMIN 1.9 gm/dl (3.1-4.5); ALKALINE PHOSPHATASE 664 U/L (45-117); BUN 9 mg/dl (7-24); CHLORIDE 91 mmol/L (98-107); CREATININE 1.04 mg/dL (0.70-1.30); LIPASE 174 U/L (73-393); MAGNESIUM 1.8 mg/dL (1.5-2.1); POTASSIUM 3.6 mmol/L (3.5-5.1); SGOT/AST 534 IU/L (3-35); SGPT/ALT 173 U/L (12-78); SODIUM 134 mmol/L (136-145); TOTAL PROTEIN 5.6 gm/dL (6.4-8.2)
[2016-11-04 17:16] LABS: TROPONIN I < 0.015 ng/ml (<0.045)
[2016-11-04 17:48] VITALS: BP 105/66
[2016-11-04 17:58] LABS: BILIRUBIN 3+ (NEGATIVE); BLOOD TRACE-LYSED (NEGATIVE); CLARITY SL CLOUDY (CLEAR); COLOR BROWN (YELLOW); GLUCOSE TRACE (NEGATIVE); KETONE 1+ (NEGATIVE); NITRITE POSITIVE (NEGATIVE); PH 6.5 (5.0-9.0); SPECIFIC GRAVITY 1.015 (1.005-1.030)
--- NOTE | 2016-11-04 18:00 | NUR ---
DR. FIORE CALLED AND NOTIFIED OF CONSULT. THE WAS UPDATED ON THE PATIENT CONDITION AND RECENT LAB WORK. THE ORDERED THE PATIENT TO BE NPO FOR POSSIBLE SCOPE TONIGHT. NO OTHER CONCERNS FROM THE
[2016-11-04 18:08] LABS: LEUKO ESTERASE TRACE (NEGATIVE)
[2016-11-04 18:09] LABS: BACTERIA 1+
--- NOTE | 2016-11-04 18:10 | NUR ---
A 56, admitted to , under the services of KIMMY Murcia DO with a diagnosis of UPPER GI BLEED. ACUTE ALCOHOL LIVER DISEASE.. Chief complaint is BLACK TARRY STOOLS. Patient arrived via bed from ER. Monitor applied. Initial assessment completed. Vital signs taken and recorded. KIMMY MURCIA DO notified of admission to the unit. Orders received. See assessment for past medical history, medications and allergies. Patient and/or family oriented to unit. [facility] Clothing/patient valuable form completed. MARIZOL MATTA
[2016-11-04 18:15] VITALS: BP 119/70
[2016-11-04 18:30] VITALS: BP 119/70
--- NOTE | 2016-11-04 19:28 | NUR ---
DR. FIORE CALLED AND ORDERS RECEIVED.
--- NOTE | 2016-11-04 19:30 | NUR ---
LAB CALLED WITH CRITICAL LACTIC ACID 3.[address] ELMORE AND NOTIFIED HIM OF THIS AND ORDERS RECEIVED.
--- NOTE | 2016-11-04 19:40 | NUR ---
PT. SPOKE TO DR. FIORE AND CLAUDIA SARABIA CRNA AND HE IS REFUSING PROCEDURE. TRANSPORTED VIA BED TO [facility] AND REPORT TO [facility]
[2016-11-04 20:00] VITALS: BP 94/59
--- NOTE | 2016-11-04 20:26 | NUR ---
ATIVAN GIVEN PER ORDER FOR TREMORS. SEE MAR.
--- NOTE | 2016-11-04 21:30 | NUR ---
LAB CALLED WITH CRITICAL LACTIC ACID OF 2.[address] ELMORE AND NOTIFIED HIM OF THIS AND NO NEW ORDERS RECEIVED.
--- NOTE | 2016-11-04 22:00 | NUR ---
ATIVAN EFFECTIVE FOR ANXIETY AND TREMORS AT THIS TIME. PT. RESTING QUIETLY.
--- NOTE | 2016-11-04 23:30 | NUR ---
URINE CULTURE OBTAINED AND SENT TO LAB.
[2016-11-05] VITALS: BP 117/83
--- NOTE | 2016-11-05 04:12 | NUR ---
ATIVAN GIVEN PER ORDER FOR TREMORS OF HANDS. SEE MAR.
--- NOTE | 2016-11-05 05:15 | NUR ---
ATIVAN EFFECTIVE FOR TREMORS,ANXIETY PER PT. TREMORS LESS VISIBLE PT. RESTING.
[2016-11-05 06:12] LABS: BASO % 0.1 % (0.0-1.0); EOS % 0.1 % (1.0-4.0); HEMOGLOBIN 8.7 g/dl (14.0-18.0); LYMPH # 0.6 10*3/uL (1.3-4.4); LYMPH % 7.5 % (27.0-41.0); MEAN CELL VOLUME 94.5 fl (80.0-94.0); MEAN CORPUSCULAR HGB 31.6 pg (27.0-31.0); MEAN CORPUSCULAR HGB CONC 33.5 g/dl (33.0-37.0); MEAN PLATELET VOLUME 11.6 fl (9.6-12.3); MONO # 0.2 10*3/uL (0.1-1.0); MONO % 2.8 % (3.0-9.0); NEUT # 7.2 10*3/uL (2.3-7.9); NEUT % 88.3 % (47.0-73.0); PLATELET COUNT AUTOMATED 87 10*3/uL (130-400); RED BLOOD COUNT 2.75 10*6/uL (4.50-5.90); RED CELL DISTRI WIDTH 18.1 % (0-14.5); WHITE BLOOD COUNT 8.2 10*3/uL (4.8-10.8)
[2016-11-05 06:37] LABS: ALBUMIN 1.8 gm/dl (3.1-4.5); ALKALINE PHOSPHATASE 559 U/L (45-117); BUN 7 mg/dl (7-24); CHLORIDE 97 mmol/L (98-107); CHOLESTEROL 414 mg/dL (<200); CREATININE 0.97 mg/dL (0.70-1.30); HDL CHOLESTEROL 20 mg/dl (40-60); LDL CHOLESTEROL 325 mg/dL (9-159); MAGNESIUM 1.8 mg/dL (1.5-2.1); PHOSPHOROUS 2.4 mg/dL (2.5-4.9); POTASSIUM 3.9 mmol/L (3.5-5.1); SGOT/AST 449 IU/L (3-35); SGPT/ALT 160 U/L (12-78); SODIUM 135 mmol/L (136-145); TOTAL PROTEIN 5.3 gm/dL (6.4-8.2); TRIGLYCERIDES 346 mg/dl (<150); VLDL CHOLESTEROL 69 mg/dL (6-40)
[2016-11-05 06:43] LABS: FREE T4 1.08 ng/dl (0.76-1.46)
[2016-11-05 08:00] VITALS: BP 102/60; BP 114/74
[2016-11-05 08:05] LABS: VITAMIN D, 25-HYDROXY 5.7 ng/mL (30-100)
--- NOTE | 2016-11-05 08:13 | NUR ---
DR. FIORE CALLED AND UPDATED ON PATIENTS H/H. THE HAD NO CONCERN FOR THE PATIENT H/H, ORDERED A SOFT DIET AND A H/H IN THE MORNING. NO OTHER CONCERNS.
[2016-11-05 12:00] VITALS: BP 108/62
[2016-11-05 16:00] VITALS: BP 116/70
[2016-11-05 20:00] VITALS: BP 107/69
--- NOTE | 2016-11-05 22:29 | NUR ---
IV ATIVAN GIVEN PER ORDER FOR INCREASED TREMORS OF HANDS NOT ABLE TO GIVEN PO ATIVAN. SEE MAR.
--- NOTE | 2016-11-05 23:30 | NUR ---
IV ATIVAN EFFECTIVE FOR TREMORS.
[2016-11-06] VITALS: BP 107/63
--- NOTE | 2016-11-06 02:46 | NUR ---
PO ATIVAN GIVEN FOR TREMORS. SEE MAR.
--- NOTE | 2016-11-06 04:00 | NUR ---
RESTING QUIETLY TREMORS DECRESASED ATIVAN EFFECTIVE.
[2016-11-06 06:37] LABS: HEMATOCRIT 24.4 % (42.0-52.0)
[2016-11-06 07:09] LABS: ALBUMIN 1.7 gm/dl (3.1-4.5); BUN 10 mg/dl (7-24); CHLORIDE 101 mmol/L (98-107); CREATININE 0.88 mg/dL (0.70-1.30); POTASSIUM 4.2 mmol/L (3.5-5.1); SGOT/AST 220 IU/L (3-35); SGPT/ALT 130 U/L (12-78); SODIUM 140 mmol/L (136-145)
[2016-11-06 07:11] LABS: ALKALINE PHOSPHATASE 530 U/L (45-117); PHOSPHOROUS 2.4 mg/dL (2.5-4.9); TOTAL PROTEIN 5.1 gm/dL (6.4-8.2)
[2016-11-06 08:00] VITALS: BP 118/76
--- NOTE | 2016-11-06 08:50 | NUR ---
PT RECEIVED 0.5MG OF ATIVAN AT 0823 THIS MORNING. REASSESSED AT 0845, TOLERATED WELL.
--- NOTE | 2016-11-06 09:00 | NUR ---
Manager Baby in to talk to patient. Patient states lives at home with family. There are few steps in the home. Physician: telly [facility]acy[facility] [place] Home health services: none Patient's level of ADLs: INDEPENDENT Patient has working utilities: all working DME: oxygen, portable and nebulizer Follow-up physician's appointment after d/c: will be made by hospitalist nurse director upon discharge Does patient want to access PORTAL?: no Discharge plan discussed with patient, patient lives at home with family, is independent in adls and ambulation, patient states he will be going home when able and denies any home needs. SISSY SR
[2016-11-06 12:00] VITALS: BP 122/76
--- NOTE | 2016-11-06 14:30 | NUR ---
PATIENT MEDICATED WITH IV ATIVAN PER ORDER FOR COMPLAINTS OF AGITAITON. WILL MONITOR.
--- NOTE | 2016-11-06 14:45 | NUR ---
PER PATIENT, MEDICATION EFFECTIVE AT THIS TIME.
--- NOTE | 2016-11-06 14:50 | NUR ---
NOTIFIED THAT PATIENT IS REFUSING EGD NOW.
[2016-11-06 16:00] VITALS: BP 113/70
[2016-11-06] MEDS ORDERED: VITAMIN D50000 UNIT PO (18:06)
[2016-11-06] MEDS ORDERED: PREDNISONE10 MG PO (18:06)
[2016-11-06] MEDS ORDERED: VIBRAMYCIN100 MG PO (18:06)
--- NOTE | 2016-11-06 19:45 | NUR ---
Discharge instructions reviewed with patient/family. Patient receptive and verbalizes understanding. Follow-up care arranged. Written instructions given to patient/family. Discharged via wheelchair. Tolerated well. JDUIE ORTIZ
== END 2016-11-06 19:45 | disposition home or self-care (01) | DRG 871 ==
LOC: ED 15:42 → EDHOLD 17:08 → 5E 17:08
PROVIDERS: Emergency Medicine; Internal Medicine; Internal Medicine Gastroenterology; ADMIT Internal Medicine
DX: A41.9 Sepsis, unspecified organism (principal); E43 Unspecified severe protein-calorie malnutrition; J96.11 Chronic respiratory failure with hypoxia; D68.69 Other thrombophilia; E87.8 Other disorders of electrolyte and fluid balance, not elsewhere classified; E87.1 Hypo-osmolality and hyponatremia; K92.2 Gastrointestinal hemorrhage, unspecified; F10.239 Alcohol dependence with withdrawal, unspecified; N39.0 Urinary tract infection, site not specified; D62 Acute posthemorrhagic anemia; J44.1 Chronic obstructive pulmonary disease with (acute) exacerbation; D69.6 Thrombocytopenia, unspecified; E67.8 Other specified hyperalimentation; E83.39 Other disorders of phosphorus metabolism; E78.2 Mixed hyperlipidemia; K70.10 Alcoholic hepatitis without ascites; K82.8 Other specified diseases of gallbladder; R82.4 Acetonuria; K76.0 Fatty (change of) liver, not elsewhere classified; I48.0 Paroxysmal atrial fibrillation; Y90.2 Blood alcohol level of 40-59 mg/100 ml; I10 Essential (primary) hypertension; R74.0 Nonspecific elevation of levels of transaminase and lactic acid dehydrogenase [LDH]; R73.9 Hyperglycemia, unspecified; D64.9 Anemia, unspecified; R80.9 Proteinuria, unspecified; Z71.6 Tobacco abuse counseling; Z53.29 Procedure and treatment not carried out because of patient's decision for other reasons; Z99.81 Dependence on supplemental oxygen; Z98.49 Cataract extraction status, unspecified eye; Z83.6 Family history of other diseases of the respiratory system; Z88.1 Allergy status to other antibiotic agents; Z88.8 Allergy status to other drugs, medicaments and biological substances; Z79.899 Other long term (current) drug therapy; Z68.26 Body mass index [BMI] 26.0-26.9, adult

== ENCOUNTER 2019-06-05 21:32 | Inpatient (IN) | payer OTHER ==
[~2019-06-05] VITALS: Ht 180.3 cm; Wt 83.0 kg
[~2019-06-05 21:32] MED LIST changes: +VIBRAMYCIN100 MG PO; +VITAMIN D50000 UNIT PO
[2019-06-05 21:37] VITALS: BP 115/69
[2019-06-05 22:10] LABS: BASO # 0.1 10*3/uL (0.0-0.1); BASO % 0.6 % (0.0-1.0); EOS # 0.2 10*3/uL (0.0-0.4); EOS % 1.8 % (1.0-4.0); HEMATOCRIT 37.9 % (42.0-52.0); LYMPH # 1.7 10*3/uL (1.3-4.4); LYMPH % 17.8 % (27.0-41.0); MEAN CELL VOLUME 105.6 fl (80.0-94.0); MEAN CORPUSCULAR HGB 33.4 pg (27.0-31.0); MEAN CORPUSCULAR HGB CONC 31.7 g/dl (33.0-37.0); MEAN PLATELET VOLUME 11.2 fl (9.6-12.3); MONO # 1.5 10*3/uL (0.1-1.0); MONO % 15.5 % (3.0-9.0); NEUT # 6.1 10*3/uL (2.3-7.9); NEUT % 63.6 % (47.0-73.0); PLATELET COUNT AUTOMATED 366 10*3/uL (130-400); RED BLOOD COUNT 3.59 10*6/uL (4.50-5.90); RED CELL DISTRI WIDTH 13.6 % (0-14.5); WHITE BLOOD COUNT 9.6 10*3/uL (4.8-10.8)
[2019-06-05 22:39] LABS: CLARITY CLEAR (CLEAR); COLOR YELLOW (YELLOW)
[2019-06-05 22:40] LABS: BILIRUBIN NEGATIVE (NEGATIVE); BLOOD NEGATIVE (NEGATIVE); GLUCOSE NEGATIVE (NEGATIVE); KETONE NEGATIVE (NEGATIVE); LEUKO ESTERASE NEGATIVE (NEGATIVE); NITRITE NEGATIVE (NEGATIVE); SPECIFIC GRAVITY 1.005 (1.005-1.030); UROBILINOGEN 0.2 E.U./dl (0.2-1.0)
[2019-06-05 22:41] LABS: ACT PARTIAL THROMBO TIME 26.1 SECONDS (20.0-32.1)
[2019-06-05 22:45] LABS: RBC 0-2 rbc/hpf (0-2)
[2019-06-05 22:47] LABS: ALBUMIN 3.1 gm/dl (3.1-4.5); ALKALINE PHOSPHATASE 85 U/L (45-117); BUN 6 mg/dl (7-24); CHLORIDE 87 mmol/L (98-107); CREATININE 0.54 mg/dL (0.70-1.30); POTASSIUM 4.2 mmol/L (3.5-5.1); SGOT/AST 23 IU/L (3-35); SGPT/ALT 34 U/L (12-78); SODIUM 131 mmol/L (136-145); TOTAL PROTEIN 6.7 gm/dL (6.4-8.2)
[2019-06-05 22:48] LABS: TROPONIN I < 0.015 ng/ml (<0.045)
[2019-06-05 23:07] LABS: ACETAMINOPHEN (TYLENOL) < 5.0 ug/ml (10-30)
[2019-06-05 23:34] LABS: URINE AMPHETAMINES < 1000 (1000ng/ml); URINE BARBITURATES < 200 (200ng/ml); URINE BENZODIAZEPINES < 200 (200ng/ml); URINE CANNABINOIDS (THC) < 50 (50ng/ml); URINE COCAINE < 300 (300ng/ml); URINE METHADONE < 300 (300ng/ml); URINE OPIATES < 300 (300ng/ml)
[2019-06-05 23:35] LABS: URINE PHENCYCLIDINE < 25 (25ng/ml)
[2019-06-05 23:57] VITALS: BP 112/63
[2019-06-06] MEDS ORDERED: BUPROPION HCL150 M1 PO (00:01)
[2019-06-06] MEDS ORDERED: BUDESONIDE-FO10.2 G1 INH (05:17)
[2019-06-06 05:22] VITALS: BP 117/73
[2019-06-06 06:25] LABS: BASO % 0.5 % (0.0-1.0); EOS # 0.1 10*3/uL (0.0-0.4); EOS % 2.2 % (1.0-4.0); HEMATOCRIT 37.6 % (42.0-52.0); LYMPH # 1.1 10*3/uL (1.3-4.4); MEAN CELL VOLUME 106.5 fl (80.0-94.0); MEAN CORPUSCULAR HGB 32.3 pg (27.0-31.0); MEAN CORPUSCULAR HGB CONC 30.3 g/dl (33.0-37.0); MONO # 0.9 10*3/uL (0.1-1.0); MONO % 13.3 % (3.0-9.0); NEUT # 4.3 10*3/uL (2.3-7.9); NEUT % 66.2 % (47.0-73.0); RED BLOOD COUNT 3.53 10*6/uL (4.50-5.90); RED CELL DISTRI WIDTH 13.7 % (0-14.5); WHITE BLOOD COUNT 6.5 10*3/uL (4.8-10.8)
[2019-06-06 06:34] LABS: PLATELET COUNT AUTOMATED 193 10*3/uL (130-400)
[2019-06-06 06:37] LABS: BUN 6 mg/dl (7-24); CHLORIDE 91 mmol/L (98-107); CHOLESTEROL 152 mg/dL (<200); CREATININE 0.49 mg/dL (0.70-1.30); HDL CHOLESTEROL 95 mg/dl (40-60); LDL CHOLESTEROL 40 mg/dL (9-159); POTASSIUM 4.1 mmol/L (3.5-5.1); SODIUM 138 mmol/L (136-145); TRIGLYCERIDES 83 mg/dl (<150); VLDL CHOLESTEROL 17 mg/dL (6-40)
[2019-06-06 08:00] VITALS: BP 114/58
[2019-06-06 12:00] VITALS: BP 112/53
[2019-06-06 12:45] LABS: ABG BASE EXCESS 19.2 mmol/L (-2.0-2.0); ARTERIAL BLOOD GAS PH 7.292 (7.35-7.45)
[2019-06-06 16:00] VITALS: BP 127/77
[2019-06-06 16:19] LABS: ABG BASE EXCESS 21.6 mmol/L (-2.0-2.0); ARTERIAL BLOOD GAS PH 7.421 (7.35-7.45)
[2019-06-06 20:00] VITALS: BP 123/65
[2019-06-07] VITALS (8 sets, daily range): BP systolic 90–122; BP diastolic 52–610
[2019-06-07 06:50] LABS: BUN 11 mg/dl (7-24); CHLORIDE 91 mmol/L (98-107); CREATININE 0.86 mg/dL (0.70-1.30); POTASSIUM 3.7 mmol/L (3.5-5.1); SODIUM 138 mmol/L (136-145)
[2019-06-07 07:12] LABS: ARTERIAL BLOOD GAS PH 7.24 (7.35-7.45)
[2019-06-07 12:33] LABS: ABG BASE EXCESS 13.8 mmol/L (-2.0-2.0); ARTERIAL BLOOD GAS PH 7.271 (7.35-7.45)
[2019-06-07 15:07] LABS: ARTERIAL BLOOD GAS PH 7.298 (7.35-7.45)
[2019-06-07 17:36] LABS: ABG BASE EXCESS 12.5 mmol/L (-2.0-2.0); ARTERIAL BLOOD GAS PH 7.369 (7.35-7.45)
[2019-06-08] VITALS (9 sets, daily range): BP systolic 80–107; BP diastolic 39–70
[2019-06-08 06:16] LABS: HEMATOCRIT 37.8 % (42.0-52.0); MEAN CELL VOLUME 109.2 fl (80.0-94.0); MEAN CORPUSCULAR HGB 32.4 pg (27.0-31.0); MEAN CORPUSCULAR HGB CONC 29.6 g/dl (33.0-37.0); MEAN PLATELET VOLUME 10.7 fl (9.6-12.3); PLATELET COUNT AUTOMATED 177 10*3/uL (130-400); RED BLOOD COUNT 3.46 10*6/uL (4.50-5.90); RED CELL DISTRI WIDTH 14.3 % (0-14.5); WHITE BLOOD COUNT 9.9 10*3/uL (4.8-10.8)
[2019-06-08 07:15] LABS: PLATELET SUFFICIENCY NORMAL (NORMAL); POLYCHROMASIA SLIGHT; STOMATOCYTE FEW; TOTAL CELLS COUNTED 100 #CELLS
[2019-06-08 08:23] LABS: BUN 13 mg/dl (7-24); CHLORIDE 97 mmol/L (98-107); CREATININE 0.79 mg/dL (0.70-1.30); POTASSIUM 3.6 mmol/L (3.5-5.1); SODIUM 139 mmol/L (136-145)
[2019-06-09] VITALS (7 sets, daily range): BP systolic 84–103; BP diastolic 50–62
[2019-06-09 06:10] LABS: BUN 15 mg/dl (7-24); CHLORIDE 101 mmol/L (98-107); CREATININE 0.96 mg/dL (0.70-1.30); POTASSIUM 3.5 mmol/L (3.5-5.1); SODIUM 139 mmol/L (136-145)
[2019-06-09 06:24] LABS: BASO % 0.4 % (0.0-1.0); EOS # 0.3 10*3/uL (0.0-0.4); EOS % 3.5 % (1.0-4.0); HEMATOCRIT 37.8 % (42.0-52.0); LYMPH # 0.5 10*3/uL (1.3-4.4); LYMPH % 6.3 % (27.0-41.0); MEAN CELL VOLUME 107.4 fl (80.0-94.0); MEAN CORPUSCULAR HGB 32.7 pg (27.0-31.0); MEAN CORPUSCULAR HGB CONC 30.4 g/dl (33.0-37.0); MEAN PLATELET VOLUME 10.6 fl (9.6-12.3); MONO # 1.3 10*3/uL (0.1-1.0); MONO % 15.2 % (3.0-9.0); NEUT # 6.1 10*3/uL (2.3-7.9); NEUT % 72.9 % (47.0-73.0); PLATELET COUNT AUTOMATED 185 10*3/uL (130-400); RED BLOOD COUNT 3.52 10*6/uL (4.50-5.90); RED CELL DISTRI WIDTH 14.4 % (0-14.5); WHITE BLOOD COUNT 8.3 10*3/uL (4.8-10.8)
[2019-06-10] VITALS: BP 101/57
[2019-06-10 06:29] LABS: BUN 19 mg/dl (7-24); CHLORIDE 101 mmol/L (98-107); CREATININE 0.83 mg/dL (0.70-1.30); POTASSIUM 3.8 mmol/L (3.5-5.1); SODIUM 141 mmol/L (136-145)
[2019-06-10 08:00] VITALS: BP 106/70
[2019-06-10 12:00] VITALS: BP 119/75
[2019-06-10 16:00] VITALS: BP 116/73
[2019-06-10 20:00] VITALS: BP 116/61
[2019-06-11] VITALS: BP 131/68
[2019-06-11 00:35] VITALS: BP 88/46
[2019-06-11 06:04] LABS: BUN 15 mg/dl (7-24); CHLORIDE 103 mmol/L (98-107); CREATININE 0.64 mg/dL (0.70-1.30); POTASSIUM 4.1 mmol/L (3.5-5.1); SODIUM 143 mmol/L (136-145)
[2019-06-11 06:07] LABS: HEMATOCRIT 36.4 % (42.0-52.0); MEAN CORPUSCULAR HGB 31.4 pg (27.0-31.0); MEAN CORPUSCULAR HGB CONC 28.8 g/dl (33.0-37.0); MEAN PLATELET VOLUME 10.5 fl (9.6-12.3); PLATELET COUNT AUTOMATED 161 10*3/uL (130-400); RED BLOOD COUNT 3.34 10*6/uL (4.50-5.90); WHITE BLOOD COUNT 6.1 10*3/uL (4.8-10.8)
[2019-06-11 07:07] LABS: BASOPHILS 1 % (0-1); TOTAL CELLS COUNTED 100 #CELLS
[2019-06-11 07:08] LABS: PLATELET SUFFICIENCY NORMAL (NORMAL); POLYCHROMASIA SLIGHT
[2019-06-11 08:00] VITALS: BP 100/62; BP 91/50
[2019-06-11 10:49] LABS: ABG BASE EXCESS 10.3 mmol/L (-2.0-2.0); ARTERIAL BLOOD GAS PH 7.254 (7.35-7.45)
[2019-06-11 12:00] VITALS: BP 98/55
[2019-06-11 13:46] LABS: ABG BASE EXCESS 8.1 mmol/L (-2.0-2.0); ARTERIAL BLOOD GAS PH 7.228 (7.35-7.45)
[2019-06-11 17:00] VITALS: BP 102/58
[2019-06-11 20:00] VITALS: BP 121/56
[2019-06-11 20:31] LABS: BUN 13 mg/dl (7-24); CHLORIDE 104 mmol/L (98-107); POTASSIUM 4.2 mmol/L (3.5-5.1); SODIUM 142 mmol/L (136-145)
[2019-06-12] VITALS: BP 134/73
[2019-06-12 06:17] LABS: HEMATOCRIT 34.9 % (42.0-52.0); MEAN CELL VOLUME 110.8 fl (80.0-94.0); MEAN CORPUSCULAR HGB 31.7 pg (27.0-31.0); MEAN CORPUSCULAR HGB CONC 28.7 g/dl (33.0-37.0); MEAN PLATELET VOLUME 10.4 fl (9.6-12.3); PLATELET COUNT AUTOMATED 156 10*3/uL (130-400); RED BLOOD COUNT 3.15 10*6/uL (4.50-5.90); RED CELL DISTRI WIDTH 14.1 % (0-14.5); WHITE BLOOD COUNT 6.4 10*3/uL (4.8-10.8)
[2019-06-12 06:27] LABS: ALBUMIN 2.5 gm/dl (3.1-4.5); ALKALINE PHOSPHATASE 84 U/L (45-117); BUN 12 mg/dl (7-24); CHLORIDE 103 mmol/L (98-107); CREATININE 0.73 mg/dL (0.70-1.30); POTASSIUM 4.2 mmol/L (3.5-5.1); SGOT/AST 33 IU/L (3-35); SGPT/ALT 46 U/L (12-78); SODIUM 144 mmol/L (136-145); TOTAL PROTEIN 5.8 gm/dL (6.4-8.2)
[2019-06-12 06:49] LABS: ATYPICAL LYMPHS 7 % (0-0); PLATELET SUFFICIENCY NORMAL (NORMAL); POLYCHROMASIA SLIGHT; TOTAL CELLS COUNTED 100 #CELLS
[2019-06-12 06:50] LABS: STOMATOCYTE FEW
[2019-06-12 08:15] VITALS: BP 100/52
[2019-06-12 12:00] VITALS: BP 110/68
[2019-06-12 16:00] VITALS: BP 100/61
[2019-06-12 20:00] VITALS: BP 114/68
[2019-06-13] VITALS (7 sets, daily range): BP systolic 86–128; BP diastolic 42–80
[2019-06-13 06:42] LABS: BUN 13 mg/dl (7-24); CHLORIDE 98 mmol/L (98-107); CREATININE 0.71 mg/dL (0.70-1.30); POTASSIUM 4.4 mmol/L (3.5-5.1); SODIUM 142 mmol/L (136-145)
[2019-06-13 17:50] LABS: ABG BASE EXCESS 9.9 mmol/L (-2.0-2.0); ARTERIAL BLOOD GAS PH 7.271 (7.35-7.45)
[2019-06-14] VITALS: BP 117/63
[2019-06-14 06:35] LABS: BUN 14 mg/dl (7-24); CHLORIDE 102 mmol/L (98-107); SODIUM 141 mmol/L (136-145)
[2019-06-14 07:46] VITALS: BP 110/64
[2019-06-14 12:00] VITALS: BP 122/69
[2019-06-14 16:00] VITALS: BP 90/63; BP 90/64
[2019-06-14 20:00] VITALS: BP 115/58
[2019-06-15] VITALS (7 sets, daily range): BP systolic 98–117; BP diastolic 60–76
[2019-06-15 06:22] LABS: HEMATOCRIT 34.7 % (42.0-52.0); MEAN CELL VOLUME 106.8 fl (80.0-94.0); MEAN CORPUSCULAR HGB 31.4 pg (27.0-31.0); MEAN CORPUSCULAR HGB CONC 29.4 g/dl (33.0-37.0); MEAN PLATELET VOLUME 10.7 fl (9.6-12.3); PLATELET COUNT AUTOMATED 213 10*3/uL (130-400); RED BLOOD COUNT 3.25 10*6/uL (4.50-5.90); RED CELL DISTRI WIDTH 13.8 % (0-14.5); WHITE BLOOD COUNT 7.1 10*3/uL (4.8-10.8)
[2019-06-15 06:40] LABS: ALBUMIN 2.4 gm/dl (3.1-4.5); ALKALINE PHOSPHATASE 85 U/L (45-117); BUN 16 mg/dl (7-24); CHLORIDE 103 mmol/L (98-107); CREATININE 0.59 mg/dL (0.70-1.30); POTASSIUM 3.9 mmol/L (3.5-5.1); SGOT/AST 24 IU/L (3-35); SGPT/ALT 38 U/L (12-78); SODIUM 141 mmol/L (136-145); TOTAL PROTEIN 5.7 gm/dL (6.4-8.2)
[2019-06-15 07:19] LABS: ATYPICAL LYMPHS 2 % (0-0); BASOPHILS 1 % (0-1); TOTAL CELLS COUNTED 100 #CELLS
[2019-06-15 07:20] LABS: PLATELET SUFFICIENCY NORMAL (NORMAL); POLYCHROMASIA SLIGHT; ROULEAUX SLIGHT
[2019-06-15 12:13] LABS: ABG BASE EXCESS 12.8 mmol/L (-2.0-2.0); ARTERIAL BLOOD GAS PH 7.36 (7.35-7.45)
[2019-06-16] VITALS: BP 113/61
[2019-06-16 06:07] LABS: ALBUMIN 2.5 gm/dl (3.1-4.5); ALKALINE PHOSPHATASE 83 U/L (45-117); BUN 16 mg/dl (7-24); CHLORIDE 102 mmol/L (98-107); CREATININE 0.57 mg/dL (0.70-1.30); POTASSIUM 3.9 mmol/L (3.5-5.1); SGOT/AST 19 IU/L (3-35); SGPT/ALT 32 U/L (12-78); SODIUM 141 mmol/L (136-145); TOTAL PROTEIN 5.8 gm/dL (6.4-8.2)
[2019-06-16 06:20] LABS: BASO # 0.1 10*3/uL (0.0-0.1); BASO % 1.3 % (0.0-1.0); EOS # 0.5 10*3/uL (0.0-0.4); EOS % 6.2 % (1.0-4.0); HEMATOCRIT 34.3 % (42.0-52.0); LYMPH # 3.1 10*3/uL (1.3-4.4); LYMPH % 37.3 % (27.0-41.0); MEAN CELL VOLUME 106.9 fl (80.0-94.0); MEAN CORPUSCULAR HGB 32.1 pg (27.0-31.0); MEAN PLATELET VOLUME 10.5 fl (9.6-12.3); MONO # 1.3 10*3/uL (0.1-1.0); MONO % 15.7 % (3.0-9.0); NEUT # 3.1 10*3/uL (2.3-7.9); NEUT % 38.5 % (47.0-73.0); PLATELET COUNT AUTOMATED 233 10*3/uL (130-400); RED BLOOD COUNT 3.21 10*6/uL (4.50-5.90); WHITE BLOOD COUNT 8.2 10*3/uL (4.8-10.8)
[2019-06-16 08:29] LABS: ABG BASE EXCESS 12.3 mmol/L (-2.0-2.0); ARTERIAL BLOOD GAS PH 7.321 (7.35-7.45)
[2019-06-16 12:00] VITALS: BP 110/76
[2019-06-16 16:00] VITALS: BP 106/64
[2019-06-16 20:00] VITALS: BP 115/71
[2019-06-17] VITALS: BP 113/66
[2019-06-17] MEDS ORDERED: DOXYCYCLINE MO100 M1 PO (07:05)
[2019-06-17] MEDS ORDERED: VITAMIN D350 MC2 PO (07:05)
[2019-06-17] MEDS ORDERED: LOPRESSOR25 MG PO (07:05)
[2019-06-17 08:00] VITALS: BP 99/54
== END 2019-06-17 10:37 | disposition home or self-care (01) | DRG 602 ==
LOC: ED 21:32 → EDHOLD 06-06 03:46 → ICCU 06-06 03:46 → 4E 06-06 03:46 → ICCU 06-07 12:17 → 4E 06-09 15:34
PROVIDERS: Emergency Medicine Emergency Medical Services; Internal Medicine; Internal Medicine Critical Care Medicine; Registered Nurse; Student in an Organized Health Care Education/Training Program; ADMIT Family Medicine
PROC: 5A09357 Assistance with Respiratory Ventilation, Less than 24 Consecutive Hours, Continuous Positive Airway Pressure (ICD-10-PCS; principal; 2019-06-07)
PROC: 5A09357 Assistance with Respiratory Ventilation, Less than 24 Consecutive Hours, Continuous Positive Airway Pressure (ICD-10-PCS; 2019-06-08)
PROC: 5A09357 Assistance with Respiratory Ventilation, Less than 24 Consecutive Hours, Continuous Positive Airway Pressure (ICD-10-PCS; 2019-06-09)
PROC: 5A09357 Assistance with Respiratory Ventilation, Less than 24 Consecutive Hours, Continuous Positive Airway Pressure (ICD-10-PCS; 2019-06-10)
PROC: 5A09357 Assistance with Respiratory Ventilation, Less than 24 Consecutive Hours, Continuous Positive Airway Pressure (ICD-10-PCS; 2019-06-12)
PROC: 5A09357 Assistance with Respiratory Ventilation, Less than 24 Consecutive Hours, Continuous Positive Airway Pressure (ICD-10-PCS; 2019-06-13)
PROC: 5A09357 Assistance with Respiratory Ventilation, Less than 24 Consecutive Hours, Continuous Positive Airway Pressure (ICD-10-PCS; 2019-06-15)
PROC: 5A09357 Assistance with Respiratory Ventilation, Less than 24 Consecutive Hours, Continuous Positive Airway Pressure (ICD-10-PCS; 2019-06-16)
PROC: 5A09357 Assistance with Respiratory Ventilation, Less than 24 Consecutive Hours, Continuous Positive Airway Pressure (ICD-10-PCS; 2019-06-17)
DX: L03.116 Cellulitis of left lower limb (principal); I50.33 Acute on chronic diastolic (congestive) heart failure; J96.22 Acute and chronic respiratory failure with hypercapnia; J96.21 Acute and chronic respiratory failure with hypoxia; J44.1 Chronic obstructive pulmonary disease with (acute) exacerbation; E87.1 Hypo-osmolality and hyponatremia; E44.0 Moderate protein-calorie malnutrition; D68.69 Other thrombophilia; E87.3 Alkalosis; L03.115 Cellulitis of right lower limb; I11.0 Hypertensive heart disease with heart failure; I48.0 Paroxysmal atrial fibrillation; Z68.25 Body mass index [BMI] 25.0-25.9, adult; D53.9 Nutritional anemia, unspecified; D72.821 Monocytosis (symptomatic); R73.9 Hyperglycemia, unspecified; E87.8 Other disorders of electrolyte and fluid balance, not elsewhere classified; K76.0 Fatty (change of) liver, not elsewhere classified; K70.10 Alcoholic hepatitis without ascites; F12.10 Cannabis abuse, uncomplicated; B35.1 Tinea unguium; E66.9 Obesity, unspecified; I87.2 Venous insufficiency (chronic) (peripheral); F10.229 Alcohol dependence with intoxication, unspecified; Y90.9 Presence of alcohol in blood, level not specified; E55.9 Vitamin D deficiency, unspecified; E78.2 Mixed hyperlipidemia; F17.210 Nicotine dependence, cigarettes, uncomplicated; Z71.6 Tobacco abuse counseling; Z99.81 Dependence on supplemental oxygen; Z88.8 Allergy status to other drugs, medicaments and biological substances; Z88.1 Allergy status to other antibiotic agents; Z79.899 Other long term (current) drug therapy; Z93.3 Colostomy status; Z83.6 Family history of other diseases of the respiratory system; Z98.49 Cataract extraction status, unspecified eye